=== PATIENT | male | born 1975 | race Caucasian/White ===

== ENCOUNTER 2018-08-19 12:52 | Emergency (ER) | payer BC ==
--- NOTE | 2018-08-19 13:15 | EDM.PDOC ---
ED HPI GENERAL MEDICAL PROBLEM - General Chief Complaint: Skin Complaint Stated Complaint: RASH Time Seen by Provider: 08/19/18 13:07 - History of Present Illness INITIAL COMMENTS - FREE TEXT/NARRATIVE: HISTORY AND PHYSICAL: History of present illness: Patient 43-year-old white male presents with a concern of rash that started after recent medication prescribed for tinea pedis patient had no tongue or lip swelling no shortness of breath no difficulty swallowing or breathing denies any other concern. There is no new possible allergens that the patient is identified Review of systems: As per history of present illness and below otherwise all systems reviewed and negative. Past medical history: As per history of present illness and as reviewed below otherwise noncontributory. Surgical history: As per history of present illness and as reviewed below otherwise noncontributory. Social history: No reported history of drug or alcohol abuse. Family history: As per history of present illness and as reviewed below otherwise noncontributory. Physical exam: HEENT: Atraumatic, normocephalic, pupils reactive, negative for conjunctival pallor or scleral icterus, mucous membranes moist, throat clear, neck supple, nontender, trachea midline. Lungs: Clear to auscultation, breath sounds equal bilaterally, chest nontender. Heart: S1S2, regular, negative for clicks, rubs, or JVD. Abdomen: Soft, nondistended, nontender. Negative for masses or hepatosplenomegaly. Negative for costovertebral tenderness. Pelvis: Stable nontender. Genitourinary: Deferred. Rectal: Deferred. Extremities: Atraumatic, negative for cords or calf pain. Neurovascular unremarkable. Neuro: Awake, alert, oriented. Cranial nerves II through XII unremarkable. Cerebellum unremarkable. Motor and sensory unremarkable throughout. Exam nonfocal. Skin: Patient has maculopapular rash diffuse with appearance Diagnostics: None Therapeutics: None Impression: #1 rash probable drug allergy Definitive disposition and diagnosis as appropriate pending reevaluation and review of above. - Related Data Allergies Allergy/AdvReac Type Severity Reaction Status Date / Time No Known Allergies Allergy Verified 08/19/18 13:11 Home Meds: Home Meds Terbinafine HCl [Terbinafine] 250 mg PO DAILY 08/19/18 [History] ED ROS GENERAL - Review of Systems Review Of Systems: ROS reveals no pertinent complaints other than HPI. ED EXAM, SKIN/RASH Exam: See Below (See dictation) Course - Vital Signs Last Recorded V/S: Last Vital Signs Temp 36.1 C 08/19/18 13:08 Pulse 100 08/19/18 13:08 Resp 18 08/19/18 13:08 BP 142/81 H 08/19/18 13:08 Pulse Ox 96 08/19/18 13:08 Departure - Departure Time of Disposition: 13:14 Disposition: Home, Self-Care 01 Condition: Good Clinical Impression: Rash, Drug allergy - Discharge Information Referrals: Gabi Eugene MD [Primary Care Provider] - Additional Instructions: The following information is given to patients seen in the emergency department who are being discharged to home. This information is to outline your options for follow-up care. We provide all patients seen in our emergency department with a follow-up referral. The need for follow-up, as well as the timing and circumstances, are variable depending upon the specifics of your emergency department visit. If you don't have a primary care physician on staff, we will provide you with a referral. We always advise you to contact your personal physician following an emergency department visit to inform them of the circumstance of the visit and for follow-up with them and/or the need for any referrals to a consulting specialist. The emergency department will also refer you to a specialist when appropriate. This referral assures that you have the opportunity for followup care with a specialist. All of these measure are taken in an effort to provide you with optimal care, which includes your followup. Under all circumstances we always encourage you to contact your private physician who remains a resource for coordinating your care. When calling for followup care, please make the office aware that this follow-up is from your recent emergency room visit. If for any reason you are refused follow-up, please contact the [facility] emergency department at and asked to speak to the emergency department charge nurse. Medrol Benadryl as directed discontinuation of medication as discussed and consider allergy to as discussed follow-up primary medical doctor as needed as discussed return as needed as discussed
== END 2018-08-19 13:30 | disposition home or self-care (01) ==
LOC: MW.ED 12:52
DX: L27.0 Generalized skin eruption due to drugs and medicaments taken internally (principal); T50.995A Adverse effect of other drugs, medicaments and biological substances, initial encounter
CPT/HCPCS: 99282

== ENCOUNTER 2020-06-01 07:28 | Day surgery (SDC) | payer BC ==
[~2020-06-01 07:28] MED LIST: Glycopyrrolate 0.2 MG/ML SDV ONE; Ketorolac 30 MG/ML SDV ONE; Lactated Ringers 1,000 ML IV SCH; Lidocaine 2% 5 ML SDV ONE; Midazolam 1 MG/ML 2 ML SDV ONE; Ondansetron 4 MG/2 ML SDV ONE; Propofol 200 MG/20 ML SDV ONE; fentaNYL 100 MCG/2 ML SDV ONE
[2020-06-01] MEDS ORDERED: Bupivacaine 0.5% 30 ML SDV ONE (07:33)
[2020-06-01] MEDS ORDERED: ceFAZolin 1 GM Vial ONE ×2 (07:33→07:57)
[2020-06-01] MEDS ORDERED: Glycopyrrolate 0.2 MG/ML SDV ONE (07:56)
[2020-06-01] MEDS ORDERED: Rocuronium Bromide 50 MG/5 ML Syringe ONE (07:56)
[2020-06-01] MEDS ORDERED: Sodium Chloride 0.9% 20 ML ONE (07:57)
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
[2020-06-01] MEDS ORDERED: Propofol 200 MG/20 ML SDV ONE (08:32)
[2020-06-01] MEDS ORDERED: Acetaminophen/HYDROcodone 325-5 MG Tab PO PRN (09:25)
[2020-06-01] MEDS ORDERED: Lactated Ringers 1,000 ML IV SCH (09:30)
--- NOTE | 2020-06-01 09:33 | PCM.OPNOTE ---
- General Post-Op/Procedure Note Date of Surgery/Procedure: 06/01/20 Operative Procedure(s): Excision 2 cm x 3 cm recurrent left posterior neck mass Pre Op Diagnosis: Recurrent left posterior neck mass Post-Op Diagnosis: Same Anesthesia Technique: General ET Tube (ASA II) Primary Surgeon: Kirit Browne Fluid Replacement, Intraop: 700 EBL in mLs: 10 Condition: Good Free Text/Narrative:: DICTATION [id number] CPT CODE 03468/90070
--- NOTE | 2020-06-01 10:12 | PCM.POSTAN ---
POST ANESTHESIA ASSESSMENT - MENTAL STATUS Mental Status: Alert, Oriented - VITAL SIGNS Vital Signs: Last Vital Signs Temp 96.8 F L 06/01/20 09:18 Pulse 91 06/01/20 09:42 Resp 15 06/01/20 09:42 BP 120/80 06/01/20 09:42 Pulse Ox 92 L 06/01/20 09:42 - RESPIRATORY Respiratory Status: Respiratory Rate WNL, Airway Patent, O2 Saturation Stable - CARDIOVASCULAR CV Status: Pulse Rate WNL, Blood Pressure Stable - GASTROINTESTINAL GI Status: No Symptoms - POST OP HYDRATION Hydration Status: Adequate & Stable
--- NOTE | 2020-06-01 10:12 | PCM48HPAN ---
Post Anesthesia Note - EVALUATION WITHIN 48HRS OF ANESTHETIC Vital Signs in Normal Range: Yes Patient Participated in Evaluation: Yes Respiratory Function Stable: Yes Airway Patent: Yes Cardiovascular Function Stable: Yes Hydration Status Stable: Yes Pain Control Satisfactory: Yes Nausea and Vomiting Control Satisfactory: Yes Mental Status Recovered: Yes Vital Signs: Last Vital Signs Temp 96.8 F L 06/01/20 09:18 Pulse 91 06/01/20 09:42 Resp 15 06/01/20 09:42 BP 120/80 06/01/20 09:42 Pulse Ox 92 L 06/01/20 09:42
--- NOTE | 2020-06-01 12:28 | OR ---
SURGEON: Kirit Browne M.D. DATE OF PROCEDURE: 06/01/2020 OPERATION PERFORMED: Excision of recurrent 2 cm x 3 cm left posterior neck mass. ANESTHESIA: General endotracheal. ASA CLASSIFICATION: II. PREOPERATIVE DIAGNOSIS: Recurrent left posterior neck mass. POSTOPERATIVE DIAGNOSIS: Recurrent left posterior neck mass. ESTIMATED BLOOD LOSS: 10 mL. INTRAOPERATIVE FLUID REPLACEMENT: 700 mL of crystalloid. DESCRIPTION OF PROCEDURE: The patient was taken to the operating room, kept on the transfer cart in the supine position. Time-out was called for appropriate identification of the patient and procedure. Sequential compression boots were placed. Following satisfactory attainment of general endotracheal anesthesia, the patient was carefully positioned in the prone position on the operating table with care taken to place shoulder rolls and chest rolls. With the patient secured to the table, the surgical site was now prepped with Betadine solution and sterile drapes were applied. The skin was infiltrated with 6 mL of 0.5% plain Marcaine solution. Skin incision was made and deepened through the subcutaneous tissue obtaining hemostasis with the use of electrocautery. Dissection was carried down to the mass, which clinically appears to be a lipoma. This was circumferentially excised using electrocautery. Bleeding sites were electrocoagulated. Once the mass was removed, digital palpation did not reveal any other masses. Wound was then inspected for hemostasis. The wound was closed in 2 layers approximating the subcutaneous tissue with 3-0 Vicryl and the skin with subcuticular 4-0 Monocryl. The incision was then Steri-Stripped and dressed with a sterile Tegaderm pad. Sponge, needle, and instrument counts were all correct. The patient was returned to the supine position on the transfer cart. Once he had emerged from anesthesia and was extubated, he was taken to recovery room in stable condition. CURTIS / ADEN /[id number]
== END 2020-06-01 11:02 | disposition home or self-care (01) ==
LOC: MW.SDS 07:28
PROVIDERS: ATTEND Surgery
DX: D17.0 Benign lipomatous neoplasm of skin and subcutaneous tissue of head, face and neck (principal); E78.5 Hyperlipidemia, unspecified; E66.9 Obesity, unspecified; R73.03 Prediabetes; Z88.8 Allergy status to other drugs, medicaments and biological substances; Z87.891 Personal history of nicotine dependence; Z68.35 Body mass index [BMI] 35.0-35.9, adult; Z01.812 Encounter for preprocedural laboratory examination; Z20.828 Contact with and (suspected) exposure to other viral communicable diseases
CPT/HCPCS: 21555; 87635; J1885; J2001; J2250; J2405; J2704; J3010; J3490; J7120; 00300; 88304; J0690; U0002